=== PATIENT | female | born 1960 | race Caucasian/White ===

== ENCOUNTER → 2017-05-11 | Outpatient (CLI) | payer MEDICAID ==
[~2017-05-11] MED LIST: AMOXICILLIN/CLA1 TA2 PO; AMOXIL875 MG PO; ATORVASTATIN CA20 MG PO; BACTRIM DS 8001 TAB PO; CALTRATE 600600 MG PO; CLARITIN 10MG T10 MG PO; DEXAMETHASONE 4M4 MG PO; DICLOFENAC 50MG50 MG OR; FLONASE ALLERG9.9 ML NS; HYCODAN 5MG. TAB5 MG PO; HYDROCODONE-APA1 TA1 PO; LEVOTHYROXIN0.025 M2 PO; LEVOTHYROXIN0.075 M1 OR; METOPROLOL25 MG PO; PERCOCET 5/3251 EACH PO; SERTRALINE 50MG50 MG PO; SYNTHROID 0.0.075 MG PO; Tramadol HCl50 MG PO
--- NOTE | 2017-05-11 14:26 | CARDIOVASCULAR REPORT ---
"Cerebrovascular Exam Indications: 433.10 Occlusion/stenosis of carotid artery without cerebral infarction. IMPRESSIONS 1. The bilateral vertebral arteries are patent with normal antegrade flow. 2. Study suggests 50-69% stenosis involving the right internal carotid artery. 3. Study suggests 50-69% stenosis involving the left internal carotid artery. History: Risk factors: Current tobacco use. Hypertension. Hyperlipidemia. Carotid duplex study. Complete study and Doppler flow study including spectral analysis, color and pulliam scale imaging. Location: Vascular laboratory. Patient status: Outpatient. Tables: Arterial flow: + +--------+--------+ |Location |V sys |V ed | + +--------+--------+ |Right CCA - proximal|83.3cm/s|33.8cm/s| + +--------+--------+ |Right CCA - distal |91.9cm/s|33cm/s | + +--------+--------+ |Right ECA |89.6cm/s|--------| + +--------+--------+ |Right ICA - proximal|102cm/s |38.5cm/s| + +--------+--------+ |Right ICA - mid |109cm/s |40.1cm/s| + +--------+--------+ |Right ICA - distal |147cm/s |58.1cm/s| + +--------+--------+ |Right vertebral |34.6cm/s|--------| + +--------+--------+ |Left CCA - proximal |128cm/s |44cm/s | + +--------+--------+ |Left CCA - distal |121cm/s |48.7cm/s| + +--------+--------+ |Left ECA |156cm/s |--------| + +--------+--------+ |Left ICA - proximal |154cm/s |58.1cm/s| + +--------+--------+ |Left ICA - mid |153cm/s |62.1cm/s| + +--------+--------+ |Left ICA - distal |139cm/s |51.1cm/s| + +--------+--------+ |Left vertebral |58.1cm/s|--------| + +--------+--------+ Velocity ratios: + + + + + + | |Right, V sys|Right, V ed|Left, V sys|Left, V ed| + + + + + + |Max ICA/dist CCA|1.6 |1.76 |1.27 |1.28 | + + + + + + (Report amended ) Electronically signed by: Kiko Menendez [id number]"
--- NOTE | 2017-05-11 15:39 | RADIOLOGY REPORT PS360 ---
CT CALCIUM SCORING W/3D CLINICAL INDICATION: DYSPNEA, CALCIFIED CORATID, TOB USE, HTN, ABN EKG ORDERING PHYSICIAN: PATRICIA LEONARDO MD PATIENT AGE: 56 years COMPARISON: None FINDINGS: Coronary artery calcium score is 5 indicating minimal plaque burden with low cardiovascular disease risk Incidental note made of calcified granuloma in the left lower lobe along with mild prominence of the pulmonary interstitium and bronchial thickening which may be seen with chronic tobacco use. IMPRESSION: 1. Minimal plaque burden with low cardiovascular disease risk. 2. Suspect smokers lung disease
--- NOTE | 2017-05-11 16:46 | RADIOLOGY REPORT PS360 ---
US PELVIS-TRANSVAGINAL ONLY HISTORY: PELVIC AND PERINEAL PAIN ORDERING PHYSICIAN: PATRICIA LEONARDO MD PATIENT AGE: 56 years COMPARISON: None FINDINGS: There has been prior hysterectomy. Right ovary measures 1.9 x 0.7 cm and has an unremarkable appearance. Left ovary is 1.7 x 1 cm and has an unremarkable appearance. No cul-de-sac fluid evident. IMPRESSION: Prior hysterectomy with unremarkable appearing ovaries
--- NOTE | 2017-05-12 16:46 | RADIOLOGY REPORT PS360 ---
PROCEDURE: 2-D M-mode and color Doppler study INDICATIONS FOR THE TEST: Chest pain COPD Heart Murmur Tobacco SmokingX Palpitations Fatigue Syncope Edema HypertensionXDiabetes Mellitus Rheumatic Fever SOBXDOE Obesity HyperlipidemiaX Family History HD Additional History ABN EKG PATIENT INFORMATION HEIGHT: 62 WEIGHT:140 GENDER: Female B/P:76/46 2-D/M-MODE INTERPRETATION: 2-D MEASUREMENTS OBSERVED VALUES IN CMS Right Ventricular Dimension (RVDd) 2.2 Interventricular Septum (Thickness)(IVsd) .8 Left Ventricular Internal Dimensions(LVIDd) 5.1 Left Ventricular Posterior Wall (Thickness)(LVPWd) .7 Aortic Root 2.6 Aortic Cusp Separation 1.6 Left Atrial Dimensions (LAD) 3.5 2D 1. Left atrium is qualitatively mildly enlarged, the left ventricle is normal size, there is mild qualitative concentric left ventricular hypertrophy, visually estimated ejection fraction is over 65% with no obvious regional wall motion abnormality. 2. The right atrium and right ventricle are normal size and contractility. 3. The aortic valve is minimally thickened and fibrosed. 4. The mitral and tricuspid valve are grossly normal. 5. The pulmonic valve is poorly visualized. 6. No significant pericardial effusion noted. DOPPLER INTERROGATION: Doppler interrogation of the aortic mitral and tricuspid valvular presence of mild mitral and tricuspid regurgitation, tricuspid and jet velocity insufficient for calculation of the right ventricular systolic pressure, grade 1 diastolic dysfunction seen without tissue Doppler evidence of raised left atrial pressure. CONCLUSION: 1. Mildly enlarged left atrium, normal left ventricular size, mild concentric left ventricular hypertrophy, visually estimated ejection fraction over 65% with no obvious regional wall motion abnormality. Grade 1 diastolic dysfunction seen without tissue Doppler evidence of raised left atrial pressure. 2. Mild mitral and tricuspid regurgitation. 3. No significant pericardial effusion noted.
== END ==
LOC: RT 13:18 → RAD 15:15
DX: R06.00 Dyspnea, unspecified (principal); I65.23 Occlusion and stenosis of bilateral carotid arteries; I70.213 Atherosclerosis of native arteries of extremities with intermittent claudication, bilateral legs; I10 Essential (primary) hypertension; R94.31 Abnormal electrocardiogram [ECG] [EKG]; R10.2 Pelvic and perineal pain; Z72.0 Tobacco use; Z82.49 Family history of ischemic heart disease and other diseases of the circulatory system

== ENCOUNTER 2017-07-11 11:10 | Emergency (ER) | payer MEDICAID ==
[~2017-07-11] VITALS: Ht 157.5 cm; Wt 65.8 kg
--- OUTSIDE RECORDS SUMMARY | 2017-07-11 11:14 | External Medical Summary Rpt | CCD ---
Author Author [employer] Organization [employer] Address Unknown Phone Unavailable Purpose Continuity of Care Document - through 2016
--- OUTSIDE RECORDS SUMMARY | 2017-07-11 11:14 | External Medical Summary Rpt | CCD ---
Demographics Preferred Language Ugandan Marital Status Unknown Adventist Affiliation Unknown Race Unknown Ethnic Group Unknown Author Author , HÉCTOR ANAYA Address Unknown Phone Immunization No patient found.
--- OUTSIDE RECORDS SUMMARY | 2017-07-11 11:14 | External Medical Summary Rpt | CCD ---
Author Author [facility] Address Unknown Phone Purpose Continuity of Care Document - 05-23-2017 through 2016
--- OUTSIDE RECORDS SUMMARY | 2017-07-11 11:14 | External Medical Summary Rpt | CCD ---
Demographics Preferred Language Peruvian Marital Status Unknown Mosque Affiliation Unknown Race Unknown Ethnic Group Unknown Author Author , HÉCTOR ANAYA Address Unknown Phone Immunization No patient found.
--- OUTSIDE RECORDS SUMMARY | 2017-07-11 11:15 | External Medical Summary Rpt ---
Author Author HÉCTOR Niño, [employer] Organization [employer] Address Unknown Phone Unavailable Results Comprehensive metabolic 2000 panel in Serum or Plasma Observa Value Referen Units Interpr Notes Date tion ce etation Range Albumin/G 1.1 - 1.8 No Normal No Sep 18 lobulin informati informati 2017 6:54 [Mass on in on in AM ratio] in source source Serum or data data Plasma Albumin 3.4 - 5.0 gm/dL Normal No Sep 18 [Mass/vol informati 2017 6:54 ume] in on in AM Serum or source Plasma data Alkaline 46 - 116 U/L Normal No Sep 18 phosphata informati 2017 6:54 se on in AM [Enzymati source c data activity/ volume] in Serum or Plasma Bilirubin 0.2 - 1.0 mg/dL Normal No Sep 18 .total informati 2017 6:54 [Mass/vol on in AM ume] in source Serum or data Plasma Urea 7 - 18 mg/dL Normal No Sep 18 nitrogen informati 2017 6:54 [Mass/vol on in AM ume] in source Serum or data Plasma Calcium 8.5 - mg/dL Normal No Sep 18 [Mass/vol 10.1 informati 2017 6:54 ume] in on in AM Serum or source Plasma data Chloride 98 - 107 mmoL/L Normal No Sep 18 [Moles/vo informati 2017 6:54 lume] in on in AM Serum or source Plasma data Carbon 21.0 - mmoL/L Normal No Sep 18 dioxide, 32.0 informati 2017 6:54 total on in AM [Moles/vo source lume] in data Serum or Plasma Creatinin 0.55 - mg/dL Normal No Sep 18 e 1.02 informati 2017 6:54 [Mass/vol on in AM ume] in source Serum or data Plasma Estimated 59- ML/MIN No REFERENCE Sep 18 informati RANGE: 2017 6:54 glomerula on in >60 AM r source ML/MIN/1. filtratio data 73 SQUARE n rate METERSIf (GF this patient is -A merican, then multiply theresult by 1.210. Globulin 1.3 - 3.2 gm/dL Normal No Sep 18 [Mass/vol informati 2017 6:54 ume] in on in AM Serum source data Glucose 74 - 106 mg/dL Normal No Sep 18 [Mass/vol informati 2017 6:54 ume] in on in AM Serum or source Plasma data Potassium 3.5 - 5.1 mmoL/L Normal No Sep 18 informati 2017 6:54 [Moles/vo on in AM lume] in source Serum or data Plasma Sodium 136 - 145 mmoL/L Normal No Sep 18 [Moles/vo informati 2017 6:54 lume] in on in AM Serum or source Plasma data Aspartate 15 - 37 U/L Normal No Sep 18 informati 2017 6:54 aminotran on in AM sferase source [Enzymati data c activity/ volume] in Serum or Plasma Alanine 12 - 78 U/L Normal No Sep 18 aminotran informati 2017 6:54 sferase on in AM [Enzymati source c data activity/ volume] in Serum or Plasma Protein 6.4 - 8.2 gm/dL Normal No Sep 18 [Mass/vol informati 2017 6:54 ume] in on in AM Serum or source Plasma data Lipid 1996 panel in Serum or Plasma Observa Value Referen Units Interpr Notes Date tion ce etation Range Cholester < 200 mg/dL High No Sep 18 ol informati 2017 6:54 [Moles/vo on in AM lume] in source Unspecifi data ed specimen Cholester 40 - 60 MG/DL High No Sep 18 ol in HDL informati 2017 6:54 on in AM [Mass/vol source ume] in data Serum or Plasma Cholester 0 - 130 mg/dL Normal No Sep 18 ol in LDL informati 2017 6:54 on in AM [Mass/vol source ume] in data Serum or Plasma by calculati on Triglycer 30 - 200 mg/dL Normal No Sep 18 saurabh informati 2017 6:54 [Moles/vo on in AM lume] in source Serum or data Plasma Cholester 0 - 40 No Normal No Sep 18 ol in informati informati 2017 6:54 VLDL on in on in AM [Mass/vol source source ume] in data data Serum or Plasma Hepatic function 2000 panel in Serum or Plasma Observa Value Referen Units Interpr Notes Date tion ce etation Range Bilirubin 0.0 - 0.2 mg/dL Normal No Sep 18 .direct informati 2017 6:54 [Mass/vol on in AM ume] in source Serum or data Plasma Bilirubin 0 - 0.9 mg/dL Normal No Sep 18 .indirect informati 2017 6:54 on in AM [Mass/vol source ume] in data Serum or Plasma INR in Blood by Coagulation assay Observa Value Referen Units Interpr Notes Date tion ce etation Range INR in 0.9 - 1.1 No Normal INDICATIO Sep 18 Blood by informati N 2017 6:54 Coagulati on in AM on assay source INR data RANGETHER APY FOR DVT, PE, ATRIAL FIB; 2.0 - 3.0PROPHY LAXIS FOR VTETHERAP Y FOR MECHANICA L HEART 2.5 - 3.5VALVE; PREVENTIO N OF SYSTEMICE MBOLISM SECONDARY TO AMI Prothromb 9.4 - SECONDS Normal No Sep 18 in time 11.8 informati 2017 6:54 (PT) in on in AM Platelet source poor data plasma by Coagulati on assay CBC W Auto Differential panel in Blood Observa Value Referen Units Interpr Notes Date tion ce etation Range Basophils 0 - 0.2 K/MM3 Normal No Sep 18 informati 2017 6:54 [#/volume on in AM ] in source Blood by data Automated count Basophils 0.1 - 2.0 % Normal No Sep 18 /100 informati 2017 6:54 leukocyte on in AM s in source Blood by data Automated count Eosinophi 0.0 - 0.4 K/mm3 Normal No Sep 18 ls informati 2017 6:54 [#/volume on in AM ] in source Blood by data Automated count Eosinophi 0.1 - % Normal No Sep 18 ls/100 12.0 informati 2017 6:54 leukocyte on in AM s in source Blood by data Automated count Granulocy 1.8 - 7.8 K/mm3 Normal No Sep 18 cezar informati 2017 6:54 [#/volume on in AM ] in source Blood by data Automated count Granulocy 37.0 - % Normal No Sep 18 cezar/100 80.0 informati 2017 6:54 leukocyte on in AM s in source Blood by data Automated count Hematocri 37.0 - % Normal No Sep 18 t [Volume 47.0 informati 2017 6:54 on in AM Fraction] source of Blood data Hemoglobi 12.2 - g/dL No No Sep 18 n 16.2 informati informati 2017 6:54 [Mass/vol on in on in AM ume] in source source Blood data data Lymphocyt 0.7 - 4.5 K/mm3 Normal No Sep 18 es informati 2017 6:54 [#/volume on in AM ] in source Unspecifi data ed specimen by Automated count Lymphocyt 10 - 50.0 % Normal No Sep 18 es informati 2017 6:54 [#/volume on in AM ] in source Unspecifi data ed specimen by Automated count Erythrocy 27 - 31.2 pg High No Sep 18 te mean informati 2017 6:54 corpuscul on in AM ar source hemoglobi data n [Entitic mass] Erythrocy 31.8 - g/dl Normal No Sep 18 te mean 35.4 informati 2017 6:54 corpuscul on in AM ar source hemoglobi data n concentra tion [Mass/vol ume] by Automated count Erythrocy 82.2 - fl Normal No Sep 18 te mean 97.8 informati 2017 6:54 corpuscul on in AM ar volume source [Entitic data volume] by Automated count Monocytes 0.1 - 1.0 K/mm3 Normal No Sep 18 informati 2017 6:54 [#/volume on in AM ] in source Blood by data Automated count Monocytes 1.7 - 9.3 % Normal No Sep 18 /100 informati 2017 6:54 leukocyte on in AM s in source Blood by data Automated count Platelet 7.4 - fl Low No Sep 18 mean 10.4 informati 2017 6:54 volume on in AM [Entitic source volume] data in Blood by Automated count Platelets 142 - 424 K/mm3 Normal No Sep 18 informati 2017 6:54 [#/volume on in AM ] in source Blood data Erythrocy 4.2 - 5.4 M/mm3 Normal No Sep 18 cezar informati 2017 6:54 [#/volume on in AM ] in source Amniotic data fluid Erythrocy 11.5 - % Normal No Sep 18 te 17.5 informati 2017 6:54 distribut on in AM ion width source [Entitic data volume] by Automated count Leukocyte 4.8 - K/MM3 Normal No Sep 18 s 10.8 informati 2017 6:54 [#/volume on in AM ] in source Blood data
--- NOTE | 2017-07-11 11:52 | Urgent Treatment Center Report ---
History of Present Issue Date/Time Seen by Provider 07/11/17 1152 Visit Reason Pt arrived:Walked Presenting Problem:PT C/O COUGH, HEAD AND CHEST CONGESTION FOR 1 WEEK Location if Accident: Onset of symptoms date/time:/ or onset unknown for:MEDICAL HX UNKNOWN Have you (or family members/close friends) recently traveled outside the [place]? N If Yes, where/when: Have you had exposure to infectious disease within the past month? TB? Other? Specify: c/o cough, chest congestion, rhinorrhea, nasal congestion x 1 week. Started in head but has moved to chest. mild SOA at times. thinks wheezing but not sure. + tobacco abuse. Had quit but recently started back. Granddaughter w/ similiar "cold symptoms". Ear pressure. Meera santiago seemed to help this morning. Request cough pills for nighttime because they have helped in the past. No known fevers. Source patient Exam Limitations no limitations ALLERGIES Coded Allergies: No Known Allergies (02/06/16) Home Medications Active Scripts Fluticasone Propionate (Flonase Allergy Relief) 9.9 ML NS ONCE 14 Days Prov: 01/29/17 Loratadine (Claritin 10MG) 10 MG PO DAILY 30 Days Prov: 01/29/17 Reported Medications ATORVASTATIN CALCIUM (ATORVASTATIN 20MG) 20 MG PO QHS Sertraline Hcl (Sertraline 50MG) 50 MG PO QHS Metoprolol Tartrate (Metoprolol) 25 MG PO QHS Levothyroxine Sodium (Synthroid 0.075MG) 0.075 MG PO DAILY History Medical History General CAD? No Angina: No [place]: No Hypertension? Yes Hyperlipidemia? No CHF? No DVT? No PE? No COPD? No Asthma? No Anemia? No GERD? No Gastric ulcers? No GI Bleed? No Hernia? No Thyroid Problems? Yes Hypothyroidism? Yes CVA? No Seizures? No Diabetes? No Renal Insuffiency? No UTI? No Stones? No BPH? No GB Disease: No Nephritic Syndrome? No Asplenia? No Hepatitis? No Sickle Cell Disease? No Arthritis? No Migraines? No Cataracts? No Glaucoma? No MRSA? No HIV? No TB? No Anxiety? No Depression? No Cancer? No More? No Immunization HX DT/Tetanus Unknown Flu Refused Pneumonia Refuses Surgical Hx Previous Surgery?Y C SECTION L WRIST Oral Surgery Tubal Ligation BACK SURGERY HYSTERECTOMY Family History Family HX Diabetes No CAD Yes Hypertension Yes Hyperlipidemia No Cancer Yes TB No Social History Smoking Hx Smoker: Never Smoker Tobacco: No Packs/day 1 1/2 - 2 Packs Alcohol Alcohol: Yes Review of Systems All Other Systems Reviewed and Negative Constitutional denies fever, denies malaise, denies weakness Eyes denies drainage ENT see HPI, nose discharge, nose congestion, throat pain (in the morning). denies: ear discharge. Respiratory see HPI Cardiovascular denies chest pain, denies palpitations Gastrointestinal denies no symptoms reported Musculoskeletal denies joint pain Skin denies rash Psychiatric/Neurological denies headache Physical Exam Vital Signs Vital Signs Date Time Temp Pulse Resp B/P Pulse O2 O2 Flow FiO2 Ox Delivery Rate 07/11 1222 98.0 95 20 143/93 99 07/11 1120 98.0 95 20 143/93 99 General Appearance normal appearance, no apparent distress Eye Exam - bilateral eye normal exam Ear, Nose, Throat normal pharynx, mild nasal congestion, bilateral EACs normal w / mild TM bulging but otherwise, unremarkable Neck non-tender, supple Respiratory Status Yes: trachea midline, chest symmetrical, non productive cough. No: respiratory distress, pain on inspiration, pain on expiration, productive cough. Lung Sounds anterior: wheezing (end exp throughout). posterior: wheezing (end exp throughout). bilateral: wheezing (end exp throughout). Cardiovascular regular rate/rhythm, no peripheral edema, no murmur Neurologic alert, oriented x 3 Mental status normal mood/affect Skin normal color, warm/dry Lymphatic no adenopathy Comments pt in a hurry to make it to another appt at 1230 at [facility] so no further treatment in clinic. Agrees to return for new or worsening symptoms Medical Decision Making LABS/Meds/Orders Pt receiving controlled substance in ED? No Departure Departure Time of Disposition 1220 Disposition DC Home or Self Care(routine) Clinical Impression Primary Impression: Acute bronchitis Qualifiers: Bronchitis organism: unspecified organism Qualified Code: J20.9 - Acute bronchitis, unspecified Secondary Impressions: Tobacco abuse, Upper respiratory virus Condition STABLE Referrals Junior CLARK,Tone Camilo (Family) IMMEDIATELY for new or worsening symptoms OR no noticeable improvement over the next 48-72 hours. 911 for difficulty breathing. Patient Instructions DI for Acute Bronchitis, DI for Viral Upper Respiratory Infection -- Adult, How to Quit Tobacco Products Additional Instructions * STOP SMOKING!!!! * start antibiotic today. Be sure to complete entire prescription even if feeling better. * Monitor Temp. Tylenol every 4 hours as needed no more then 5 times a day or 4000mg in 24 hours and/or ibuprofen every 6 hours as needed no more then 3200mg in 24 hours (as long as your primary care doctor has told you that it is ok to take both) for fever/aches/pain. ER if fever no less than 101 despite tylenol and ibuprofen * humidifier/vaporizer/hot steamy shower * Inhaler every 4-6 hours as needed like we discussed. If unsure how to use it, ask pharmacist to demonstrate how. Should help open airways and improve cough, wheezing, shortness of breath. * Mucinex during the day for your cough and cough suppressant only at night. Be sure to drink lots of water. Insurance may not cover a prescription of mucinex. Might be cheaper to get 400mg tablets and take 2 tablets morning, midday and evening all with lots of water. * Tessalon Perles will not cause drowsiness but use at bedtime to help stop cough so that you can get some rest * Start steroid today. Helps with inflammation therefore, cough and wheezing. Follow directions on package. Rvwd side effects. Pt reports they have taken them before. * Encourage fluids, water, gatorade, powerade, pedialyte if /toddler/child * warm salt water gargles * warm fluids * sore throat lozenges * sleep elevated * humidifier/vaporizer * flonase 2 sprays each nostril daily but may take 2-3 days to notice improvement with it Discharge Counseling Counseled pt/family regarding diagnosis, medications/RX, home care, follow up needs Prescriptions Current Visit Scripts ALBUTEROL (Proventil Hfa Inhaler) 1-2 PUFF IH Q4-6H PRN PRN SOA, wheezing #1 CAN Azithromycin (Zithromycin (Z-IMAN) 250MG Tab) 250 MG PO DAILY #6 TAB TAKE TWO (2) TABLETS ON DAY 1, THEN ONE (1) TABLET DAY #2 THRU #5 Benzonatate 200 MG PO QID #14 SGL Prednisone (Prednisone 20MG) 20 MG PO BID #10 TAB Fluticasone Propionate (Flonase 50 Mcg Nasal [place]) 2 SPRAY NA DAILY #1 BOT at 1229
[2017-07-11 12:22] VITALS: BP 143/93
[2017-07-11] MEDS ORDERED: PROVENTIL0.09 MG/A1 IH (12:23)
[2017-07-11] MEDS ORDERED: ZITHROMAX Z PA250 MG PO (12:23)
[2017-07-11] MEDS ORDERED: BENZONATATE200 MG PO (12:23)
[2017-07-11] MEDS ORDERED: PREDNISONE 20MG20 MG PO (12:23)
[2017-07-11] MEDS ORDERED: FLONASE 50 MCG16 GM (12:23)
== END 2017-07-11 12:24 | disposition home or self-care (01) ==
LOC: UTC 11:10
DX: J20.9 Acute bronchitis, unspecified (principal); F17.210 Nicotine dependence, cigarettes, uncomplicated; I10 Essential (primary) hypertension

== ENCOUNTER → 2017-07-20 | Outpatient (CLI) | payer MEDICAID ==
[~2017-07-20] MED LIST changes: +BENZONATATE200 MG PO; +FLONASE 50 MCG16 GM; +PREDNISONE 20MG20 MG PO; +PROVENTIL0.09 MG/A1 IH; +ZITHROMAX Z PA250 MG PO
--- NOTE | 2017-07-20 10:39 | RADIOLOGY REPORT PS360 ---
[id number] VIEWS HISTORY: Right shoulder pain JACOB CARPAL TUNNEL,RT SHOULDER PAIN,COPD ORDERING PHYSICIAN: PETRA GARCIA PATIENT AGE: 56 years COMPARISON: None FINDINGS: No fracture or dislocation. No lytic or blastic change. There is normal mineralization. The joint spaces are well-preserved. No significant degenerative/arthritic changes. No erosive changes evident. IMPRESSION: Negative, no acute finding
--- NOTE | 2017-07-20 16:11 | RADIOLOGY REPORT PS360 ---
CHEST(2 VIEWS-NOT PORTABLE) HISTORY: COPD, pain JACOB CARPAL TUNNEL,RT SHOULDER PAIN,COPD ORDERING PHYSICIAN: PETRA GARCIA PATIENT AGE: 56 years COMPARISON: 04/18/2017 FINDINGS: The cardiomediastinal silhouette and pulmonary vascularity are within normal limits. There is coarsening of the bronchovascular markings consistent with chronic peribronchial inflammatory change from chronic bronchitis. No lobar consolidation or collapse.. No acute bony abnormalities. IMPRESSION: Chronic coarsening of the bronchovascular markings consistent with chronic bronchitis
== END ==
LOC: LAB 09:49
DX: M25.511 Pain in right shoulder (principal); G56.03 Carpal tunnel syndrome, bilateral upper limbs; G89.29 Other chronic pain; J44.9 Chronic obstructive pulmonary disease, unspecified; I25.10 Atherosclerotic heart disease of native coronary artery without angina pectoris; I10 Essential (primary) hypertension; E78.5 Hyperlipidemia, unspecified; I65.23 Occlusion and stenosis of bilateral carotid arteries

== ENCOUNTER → 2017-08-05 | Outpatient (CLI) | payer MEDICAID ==
[2017-08-05 10:19] LABS: BILIRUBIN, INDIRECT 0.3 mg/dL (0-0.9)
== END ==
LOC: LAB 09:02
PROVIDERS: Internal Medicine Cardiovascular Disease
DX: I25.10 Atherosclerotic heart disease of native coronary artery without angina pectoris (principal); I10 Essential (primary) hypertension; E78.5 Hyperlipidemia, unspecified; I65.29 Occlusion and stenosis of unspecified carotid artery

== ENCOUNTER → 2017-08-16 | Outpatient (CLI) | payer MEDICAID | LOC: LAB 16:27 | DX: E03.9 Hypothyroidism, unspecified (principal) ==